=== PATIENT | female | born 1955 | race Caucasian/White ===

== ENCOUNTER 2021-07-28 10:49 | Inpatient (IN) ==
[2021-07-28] MEDS ORDERED: SODIUM CHLORIDE 0.9% 500 ML IV STA (10:57)
[2021-07-28] MEDS ORDERED: ONDANSETRON INJ 2 MG/ML 2 ML VIAL IV STA (10:57)
--- NOTE | 2021-07-28 11:04 | Emergency Department Note ---
Impression & Plan Subcapital fracture of left hip, Fall ED Provider Note NAME: CHAPARRITA KAY AGE: 66 SEX: F : 1955 ARRIVES VIA: Ambulance INFORMANT: Patient, ED PROVIDER(S): Mayo Finney DO CHIEF COMPLAINT: Hip pain HPI: The patient is a 66-year-old female who presented to emergency department for evaluation of hip pain. The patient fell getting out of her vehicle. She landed on her left side. She had severe pain in her left hip initially. She was able to ambulate initially but then was unable to get out of a chair. She has very severe pain in her left hip and her left knee. She also struck her left hand and her left elbow. She did not strike her head. She denies having any neck pain. She did not lose consciousness. The patient denies having any recent injuries to her left hip. The patient is requesting [facility] if she does get admitted and required surgery. The patient arrived via BLS. She recently was infected with COVID-19. She received monoclonal antibody therapy. At this time she states that she has no symptoms. She denies having any fever or cough. She has no chest pain or difficulty breathing. Patient states her pain is moderate to severe and worsened with any movement of her left hip. ROS: See above HPI for pertinent positives & negatives. A total of 10 systems reviewed and were otherwise negative. PAST MEDICAL HISTORY: See Below PAST SURGICAL HISTORY: See Below FAMILY HISTORY: See Below SOCIAL HISTORY: See Below HOME MEDICATIONS: See Below ALLERGIES: See Below VITALS: See Below PHYSICAL EXAMINATION: GENERAL: The patient is awake and alert. The patient is anxious appearing and appears to be in significant pain. EYES: The conjunctivae are clear. The pupils are round and reactive. EARS, NOSE, MOUTH AND THROAT: The nose is without any evidence of any deformity. Mucous membranes are moist. Tongue is midline. NECK: The neck is nontender and supple. RESPIRATORY: Normal respiratory effort is noted there is no evidence of wheezing rhonchi or rales CARDIOVASCULAR: Regular rate and rhythm noted there no murmurs rubs or gallops normal S1 normal S2. GASTROINTESTINAL: The abdomen is soft. Abdomen is nontender. BACK: No midline tenderness or or step-off noted range of motion in flexion extension as well as rotation no signs of muscle spasm noted MUSCULOSKELETAL/EXTREMITIES: There is pain with range of motion testing of the left hip. The hip is held in flexion at the hip as well as the knee. The patient does have palpable tenderness over the left knee but no deformity is appreciated. Pulses are symmetric in both feet. There is also an abrasion to the palm on the left hand as well as left elbow. Range of motion of these karla ints does not produce pain. SKIN: There is no obvious evidence of any rash. There are no petechiae, pallor or cyanosis noted. NEUROLOGIC: Patient is awake alert and oriented x3. MEDICAL DECISION MAKING: The patient is a 66-year-old female who presented to the emergency department for an evaluation of hip pain. The patient had a fall while getting out of a car. The patient landed on her left side. Initially she was able to ambulate but then became worse with hip pain. She called 911 and presented by ambulance. I discussed the patient's laboratory and radiographic studies with her. She did have a subcapital hip fracture. She was treated with pain medication in the emergency department and was significantly improved on reevaluation. I discu ssed her case with the on-call [facility] hospitalist group but also the on-call orthopedic for [facility]. This was by the patient's choice. They evaluated the patient in the emergency department. Triage Nursing notes reviewed. Prior medical records reviewed Vital Signs: reviewed and remarkable for no significant abnormalities Differential diagnosis: Fracture, subluxation, dislocation, contusion, ligamentous injury, neurovascular, compartment syndrome, rhabdomyolysis, as well as other p athologies. ER treatment provided: See below Diagnostics interpreted by me: ECG: EKG was obtained in the emergency department. My interpretation is normal sinus rhythm at 93 bpm. Low voltage was noted throughout. Nonspecific ST segment abnormalities were noted. No previous tracing was available for comparison. Cardiac Monitoring: An order was placed for continuous cardiac monitoring. The monitor shows a rate of 94 bpm with sinus rhythm. Laboratory studies: As stated above and show below. Imaging studies: See below Consultation(s): 1250: I discussed this case with Dr. Key who is on-call for [facility]. I consulted them at the patient's request. He will evaluate the patient in the emergency department. 1300: I discussed this case with Babs who is on-call for the [facility] ospitalist group. They will evaluate the patient in the emergency department. Past Med/Surg History Medical History Anxiety Breast cancer Dyslipidemia HTN (hypertension) Nonsustained ventricular tachycardia Obesity Palpitations SVT (supraventricular tachycardia) Surgical History H/O breast surgery H/O gastric bypass H/O hysterectomy with oophorectomy History of cardiac radiofrequency ablation (RFA) Hx of cholecystectomy Family History Other Lung cancer Stroke Social History (Updated 07/28/21 @ 15:13 by Kia Vasques PA-C) Smoking Status: Never smoker Second Hand Exposure: Yes ( smokes in/outside of house); Do You Dip or Chew Tobacco: No; Tobacco Cessation Education Requested by Patient: No Hx Alcohol Use: Yes (1 beer) Alcohol type: wine Alcohol Intake Frequency: 4 or More x per/Week Hx Substance Use: No Preferred Language: Beninese Communication Ability: Effective Visual Impairment: No Limitations Hand Stamper Required: No Beliefs That Will Affect Care: None marital status: Current Living Situation: Spouse current occupational status: employed Other Information That Helps Us Care for You: No Feels Safe at Home: Yes Safety Concerns: Feels Safe At This Time Assistive Devices: None Allergies Allergies Allergy/AdvReac Type Severity Reaction Status Date / Time Penicillins Allergy Unknown Rash Verified 07/28/21 13:04 Home Meds Home Medications Medication Instructions Recorded Confirmed alprazolam 0.5 mg tablet 0.5 mg PO TID PRN tab 09/03/19 07/28/21 Yam Root 1 cap PO QAM 07/28/21 07/28/21 acetaminophen 500 mg tablet 1,000 mg PO Q6H PRN 07/28/21 07/28/21 (Tylenol Extra Strength) evening primrose oil-linoleic 1 cap PO TID 07/28/21 07/28/21 acid-gamolenic acid 1,000 mg capsule ([place] Oil) losartan 50 mg-hydrochlorothiazide 1 tab PO DAILY 07/28/21 07/28/21 12.5 mg tablet meloxicam 15 mg tablet 15 mg PO DAILY PRN 07/28/21 07/28/21 rosuvastatin 20 mg tablet 20 mg PO DAILY 07/28/21 07/28/21 Results & Data (ED) Vital Signs Vital Signs - 24 hr 07/28/21 10:42 07/28/21 10:57 Temperature 36.7 C Temperature Source Oral Pulse Rate 85 82 Pulse Rhythm Regular Regular Pulse Strength Normal Respiratory Rate 16 16 Respiratory Effort / Characteristics Non-Labored Respiratory Depth Normal Respiratory Pattern Regular Blood Pressure 148/94 H Blood Pressure Mean 112 Pulse Oximetry 96 Oxygen Delivery Method Room Air Room Air Sepsis Recent Fever Within 48 Hours No Sepsis New/Unexplained Change in Mental Status No Sepsis Action Taken by Nursing No Action Required Home Medications Current Medication List: was personally reviewed by me Laboratory Data Attestation: I reviewed the patient's lab results. Result diagrams: 07/28/21 11:21 07/28/21 11:21 Lab Results 07/28/21 07/28/21 07/28/21 Range/Units 11:21 11:21 11:21 WBC 17.08 H (4.8-10.8) K/uL RBC 4.83 (4.2-5.4) M/uL Hgb 14.4 (12.0-16.0) g/dL Hct 43.7 (37-47) % MCV 90.5 (80-100) fL MCH 29.8 (25-34) pg MCHC 33.0 (32-36) g/dL RDW Std Deviation 44.3 (36.4-46.3) fL RDW Coeff of Rigoberto 13.4 (11.5-14.5) % Plt Count 355 (130-400) K/uL MPV 10.8 H (7.4-10.4) fL Immature Gran % (Auto) 0.4 % Neut % (Auto) 87.7 % Lymph % (Auto) 6.7 % Hutchinson % (Auto) 5.1 % Eos % (Auto) 0.0 % Baso % (Auto) 0.1 % Neut # (Auto) 14.99 H (1.4-6.5) K/uL Lymph # (Auto) 1.14 L (1.2-3.4) K/uL Hutchinson # (Auto) 0.87 H (0.11-0.59) K/uL Eos # (Auto) 0.00 (0-0.5) K/uL Baso # (Auto) 0.02 (0-0.2) K/uL Immature Gran # (Auto) 0.06 H (0.00-0.02) K/uL PT Cancelled INR Cancelled APTT Cancelled PTT Ratio Cancelled Sodium 138 (136-145) mmol/L Potassium 4.0 (3.5-5.1) mmol/L Chloride 104 (98-107) mmol/L Carbon Dioxide 26 (21-32) mmol/L Anion Gap 8.0 (3-11) BUN 13 (7-18) mg/dl Creatinine 0.77 (0.6-1.2) mg/dl Est Cr Clr Drug Dosing Not Reportable Est GFR ( Amer) 93.9 ml/min Est GFR (Non-Af Amer) 81.0 ml/min BUN/Creatinine Ratio 16.7 (10-20) Glucose 130 H (70-99) mg/dl Calcium 10.0 (8.5-10.1) mg/dl Total Bilirubin 0.5 (0.2-1) mg/dl AST 26 (15-37) U/L ALT 43 (12-78) U/L Alkaline Phosphatase 85 (45-117) U/L Troponin I < 0.015 (0-0.045) ng/ml Total Protein 7.7 (6.4-8.2) gm/dl Albumin 4.0 (3.4-5.0) gm/dl Globulin 3.7 (2.5-4.0) gm/dl Albumin/Globulin Ratio 1.1 (0.9-2) Lipase 108 (73-393) U/L COVID-19 Eval Order SARS-CoV-2 (PCR) (Negative) Blood Type Antibody Screen 07/28/21 07/28/21 07/28/21 Range/Units 11:24 11:24 13:01 WBC (4.8-10.8) K/uL RBC (4.2-5.4) M/uL Hgb (12.0-16.0) g/dL Hct (37-47) % MCV (80-100) fL MCH (25-34) pg MCHC (32-36) g/dL RDW Std Deviation (36.4-46.3) fL RDW Coeff of Rigoberto (11.5-14.5) % Plt Count (130-400) K/uL MPV (7.4-10.4) fL Immature Gran % (Auto) % Neut % (Auto) % Lymph % (Auto) % Hutchinson % (Auto) % Eos % (Auto) % Baso % (Auto) % Neut # (Auto) (1.4-6.5) K/uL Lymph # (Auto) (1.2-3.4) K/uL Hutchinson # (Auto) (0.11-0.59) K/uL Eos # (Auto) (0-0.5) K/uL Baso # (Auto) (0-0.2) K/uL Immature Gran # (Auto) (0.00-0.02) K/uL PT 10.3 INR 1.0 APTT 24.3 PTT Ratio 0.9 Sodium (136-145) mmol/L Potassium (3.5-5.1) mmol/L Chloride (98-107) mmol/L Carbon Dioxide (21-32) mmol/L Anion Gap (3-11) BUN (7-18) mg/dl Creatinine (0.6-1.2) mg/dl Est Cr Clr Drug Dosing Est GFR ( Amer) ml/min Est GFR (Non-Af Amer) ml/min BUN/Creatinine Ratio (10-20) Glucose (70-99) mg/dl Calcium (8.5-10.1) mg/dl Total Bilirubin (0.2-1) mg/dl AST (15-37) U/L ALT (12-78) U/L Alkaline Phosphatase (45-117) U/L Troponin I (0-0.045) ng/ml Total Protein (6.4-8.2) gm/dl Albumin (3.4-5.0) gm/dl Globulin (2.5-4.0) gm/dl Albumin/Globulin Ratio (0.9-2) Lipase (73-393) U/L COVID-19 Eval Order Covid19 at [facility] SARS-CoV-2 (PCR) POSITIVE A* (Negative) Blood Type Antibody Screen 07/28/21 Range/Units 13:09 WBC (4.8-10.8) K/uL RBC (4.2-5.4) M/uL Hgb (12.0-16.0) g/dL Hct (37-47) % MCV (80-100) fL MCH (25-34) pg MCHC (32-36) g/dL RDW Std Deviation (36.4-46.3) fL RDW Coeff of Rigoberto (11.5-14.5) % Plt Count (130-400) K/uL MPV (7.4-10.4) fL Immature Gran % (Auto) % Neut % (Auto) % Lymph % (Auto) % Hutchinson % (Auto) % Eos % (Auto) % Baso % (Auto) % Neut # (Auto) (1.4-6.5) K/uL Lymph # (Auto) (1.2-3.4) K/uL Hutchinson # (Auto) (0.11-0.59) K/uL Eos # (Auto) (0-0.5) K/uL Baso # (Auto) (0-0.2) K/uL Immature Gran # (Auto) (0.00-0.02) K/uL PT INR APTT PTT Ratio Sodium (136-145) mmol/L Potassium (3.5-5.1) mmol/L Chloride (98-107) mmol/L Carbon Dioxide (21-32) mmol/L Anion Gap (3-11) BUN (7-18) mg/dl Creatinine (0.6-1.2) mg/dl Est Cr Clr Drug Dosing Est GFR ( Amer) ml/min Est GFR (Non-Af Amer) ml/min BUN/Creatinine Ratio (10-20) Glucose (70-99) mg/dl Calcium (8.5-10.1) mg/dl Total Bilirubin (0.2-1) mg/dl AST (15-37) U/L ALT (12-78) U/L Alkaline Phosphatase (45-117) U/L Troponin I (0-0.045) ng/ml Total Protein (6.4-8.2) gm/dl Albumin (3.4-5.0) gm/dl Globulin (2.5-4.0) gm/dl Albumin/Globulin Ratio (0.9-2) Lipase (73-393) U/L COVID-19 Eval Order SARS-CoV-2 (PCR) (Negative) Blood Type A Positive Antibody Screen NEGATIVE Administered Medications Lactated Ringer's (Lr) 1,000 mls @ 80 mls/hr IV .[id number] Stop: 07/29/21 16:33 Last Admin: 07/28/21 15:50 Dose: 80 mls/hr Documented by: [id number] Morphine Sulfate (Morphine Sulfate 4 Mg/Ml 1 Ml Carp\Vial) 4 mg IV Q3H PRN PRN Reason: Pain (6,7,8,9,10) Stop: 08/11/21 15:33 Last Admin: 07/28/21 15:43 Dose: 4 mg Documented by: [id number] Discontinued Medications Sodium Chloride (Nss) 500 mls @ 999 mls/hr IV .Q31M STA Stop: 07/28/21 11:27 Last Infusion: 07/28/21 12:20 Dose: 0 mls/hr Documented by: [id number] Admin: 07/28/21 11:19 Dose: 999 mls/hr Documented by: [id number] Morphine Sulfate (Morphine Sulfate 4 Mg/Ml 1 Ml Carp\Vial) 4 mg IV Q15M PRN PRN Reason: Pain Stop: 08/11/21 10:56 Last Admin: 07/28/21 12:04 Dose: 4 mg Documented by: [id number] Admin: 07/28/21 11:18 Dose: 4 mg Documented by: [id number] Ondansetron HCl (Ondansetron Inj 2 Mg/Ml 2 Ml Vial) 4 mg IV NOW STA Stop: 07/28/21 10:58 Last Admin: 07/28/21 11:18 Dose: 4 mg Documented by: [id number] Imaging Data Radiologist's Impression: Chest X-Ray 07/28/21 10:57 XR chest 1V not portable INDICATION: MN ^fall . TECHNIQUE: Single frontal radiograph of the chest was obtained. Comparison: None available at the time of this dictation. FINDINGS: No lines and tubes are seen. The cardiomediastinal silhouette is normal. Lungs are underinflated but clear. No evidence of pleural effusion or pneumothorax. IMPRESSION: No acute chest disease. ACT 112: Negative or not required by law. Electronically signed by: Femi Pang M.D. 07/28/2021 12:48 PM Elbow X-Ray 07/28/21 10:57 XR elbow LT min 3V routine HISTORY: 66 years-old Female fall acute left elbow pain status post fall COMPARISON: None TECHNIQUE: 3 views of the left elbow FINDINGS: Demineralized appearance the bones. Mild osteoarthritis. No acute fracture or dislocation. Mild dorsal soft tissue swelling. No large joint effusion. IMPRESSION: No acute fracture. ACT 112: Negative or not required by law. The above report was generated using voice recognition software. It may contain grammatical, syntax or spelling errors. Electronically signed by: Placido Juarez M.D. 07/28/2021 12:47 PM Hand X-Ray 07/28/21 10:57 LEFT HAND 3 VIEWS CLINICAL HISTORY: Fall with left hand injury. FINDINGS: 3 views of the left hand are obtained. No prior studies are available for comparison at the time of dictation. The skeletal structures are osteopenic. No fracture is identified. There is mild degenerative narrowing at the radiocarpal articulation. Mild osteoarthritic change is noted at the first carpometacarpal and metacarpophalangeal joints. Mild osteoarthritic change is also seen involving the interphalangeal joints, greatest in the third finger. No erosive disease is identified. The overlying soft tissues are within normal limits. IMPRESSION: 1. No acute bony abnormality is identified. 2. Osteopenia and mild arthritic change as above. Electronically signed by: Neeraj Vinson M.D. 07/28/2021 1:15 PM Hip/Pelvis X-Ray 07/28/21 10:57 XR hip LT 2V w pelvis HISTORY: 66 years-old Female fall acute pelvic pain status post fall COMPARISON: None TECHNIQUE: AP view of the pelvis with crosstable lateral view of the left hip FINDINGS: Mild osteoarthritis of the hips. There is an acute transcervical fracture of the left femoral neck which demonstrates apex cephalad angulation with lateral displacement of 2 cm and impaction of approximately 2 cm. No dislocation. IMPRESSION: Acute impacted and displaced transcervical fracture of the left femur. ACT 112: Negative or not required by law. The above report was generated using voice recognition software. It may contain grammatical, syntax or spelling errors. Electronically signed by: Placido Juarez M.D. 07/28/2021 12:49 PM Knee X-Ray 07/28/21 10:57 LEFT KNEE 2 VIEWS HISTORY: Left knee pain. fall COMPARISON: None. FINDINGS: There is no fracture or dislocation. Trace knee effusion. Mild an terior soft tissue swelling. Mild tricompartmental osteoarthritis. The bones are slightly osteopenic. No radiopaque foreign bodies. IMPRESSION: 1. Trace left knee effusion. 2. No fractures. ACT 112: Negative or not required by law. Electronically signed by: Krzysztof Nguyen M.D. 07/28/2021 12:46 PM Discharge Plan Visit Data Chief Complaint: Hip Pain Stated Complaint: FALL ED Provider: Mayo Finney Discharge Problem: Subcapital fracture of left hip, Fall Patient Disposition: Admitted As Inpatient Discharge Instructions Interventions: ED Discharge Assessment Last Done: 07/28/21 15:23
[2021-07-28] MEDS: MoRPHine SULFATE 4 MG/ML 1 ML CARP\\VIAL IV PRN ×4 (11:18→22:37)
[2021-07-28 11:33] LABS: Basophils # (auto) 0.02 K/uL (0-0.2); Basophils % (auto) 0.1 %; Hematocrit (blood only) 43.7 % (37-47); Hemoglobin 14.4 g/dL (12.0-16.0); Immature Granulocytes # (auto) 0.06 K/uL (0.00-0.02); Immature Granulocytes % (auto) 0.4 %; Lymphocytes # (auto) 1.14 K/uL (1.2-3.4); Lymphocytes % (auto) 6.7 %; Mean Corpuscular Hemoglobin 29.8 pg (25-34); Mean Corpuscular Volume 90.5 fL (80-100); Mean Platelet Volume 10.8 fL (7.4-10.4); Monocytes # (auto) 0.87 K/uL (0.11-0.59); Monocytes % (auto) 5.1 %; Neutrophils # (auto) 14.99 K/uL (1.4-6.5); Neutrophils % (auto) 87.7 %; Platelet Count 355 K/uL (130-400); RDW Coefficient of Variation 13.4 % (11.5-14.5); RDW Standard Deviation 44.3 fL (36.4-46.3); Red Blood Count 4.83 M/uL (4.2-5.4); White Blood Count 17.08 K/uL (4.8-10.8)
[2021-07-28 11:55] LABS: Alanine Aminotransferase 43 U/L (12-78); Aspartate Aminotransferase 26 U/L (15-37); BUN Creatinine Ratio 16.7 (10-20); Blood Urea Nitrogen 13 mg/dl (7-18); Carbon Dioxide 26 mmol/L (21-32); Chloride 104 mmol/L (98-107); Est GFR (African American) 93.9 ml/min; Glucose 130 mg/dl (70-99); Lipase 108 U/L (73-393); Sodium 138 mmol/L (136-145)
[2021-07-28 11:59] LABS: Albumin Globulin Ratio 1.1 (0.9-2); Alkaline Phosphatase 85 U/L (45-117); Bilirubin,Total 0.5 mg/dl (0.2-1); Globulin 3.7 gm/dl (2.5-4.0); Total Protein 7.7 gm/dl (6.4-8.2); Troponin I < 0.015 ng/ml (0-0.045)
--- NOTE | 2021-07-28 12:48 | XRay Report ---
XR elbow LT min 3V routine HISTORY: 66 years-old Female fall acute left elbow pain status post fall COMPARISON: None TECHNIQUE: 3 views of the left elbow FINDINGS: Demineralized appearance the bones. Mild osteoarthritis. No acute fracture or dislocation. Mild dorsa l soft tissue swelling. No large joint effusion. IMPRESSION: No acute fracture. ACT 112: Negative or not required by law. The above report was generated using voice recognition software. It may contain grammatical, syntax o r spelling errors. Electronically signed by: Placido Juarez M.D. 07/28/2021 12:47 PM
--- NOTE | 2021-07-28 12:48 | XRay Report ---
LEFT KNEE 2 VIEWS HISTORY: Left knee pain. fall COMPARISON: None. FINDINGS: There is no fracture or dislocation. Trace knee effusion. Mild anterior soft tissue swellin g. Mild tricompartmental osteoarthritis. The bones are slightly osteopenic. No radiopaque foreign bod ies. IMPRESSION: 1. Trace left knee effusion. 2. No fractures. ACT 112: Negative or not required by law. Electronically signed by: Krzysztof Nguyen M.D. 07/28/2021 12:46 PM
--- NOTE | 2021-07-28 12:49 | XRay Report ---
XR chest 1V not portable INDICATION: MN ^fall . TECHNIQUE: Single frontal radiograph of the chest was obtained. Comparison: None available at the time of this dictation. FINDINGS: No lines and tubes are seen. The cardiomediastinal silhouette is normal. Lungs are underinflated but clear. No evidence of pleural effusion or pneumothorax. IMPRESSION: No acute chest disease. ACT 112: Negative or not required by law. Electronically signed by: Femi Pang M.D. 07/28/2021 12:48 PM
--- NOTE | 2021-07-28 12:50 | XRay Report ---
XR hip LT 2V w pelvis HISTORY: 66 years-old Female fall acute pelvic pain status post fall COMPARISON: None TECHNIQUE: AP view of the pelvis with crosstable lateral view of the left hip FINDINGS: Mild osteoarthritis of the hips. There is an acute transcervical fracture of the left femoral neck wh ich demonstrates apex cephalad angulation with lateral displacement of 2 cm and impaction of approxim ately 2 cm. No dislocation. IMPRESSION: Acute impacted and displaced transcervical fracture of the left femur. ACT 112: Negative or not required by law. The above report was generated using voice recognition software. It may contain grammatical, syntax o r spelling errors. Electronically signed by: Placido Juarez M.D. 07/28/2021 12:49 PM
--- NOTE | 2021-07-28 13:17 | XRay Report ---
LEFT HAND 3 VIEWS CLINICAL HISTORY: Fall with left hand injury. FINDINGS: 3 views of the left hand are obtained. No prior studies are available for comparison at the time of dictation. The skeletal structures are osteopenic. No fracture is identified. There is mild degenerative narrowing at the radiocarpal articulation. Mild osteoarthritic change is noted at the fi rst carpometacarpal and metacarpophalangeal joints. Mild osteoarthritic change is also seen involving the interphalangeal joints, greatest in the third finger. No erosive disease is identified. The over lying soft tissues are within normal limits. IMPRESSION: 1. No acute bony abnormality is identified. 2. Osteopenia and mild arthritic change as above. Electronically signed by: Neeraj Vinson M.D. 07/28/2021 1:15 PM
[2021-07-28 13:36] LABS: Partial Thromboplastin Ratio 0.9; Partial Thromboplastin Time 24.3 Seconds (21.0-31.0); Prothrombin Time 10.3 Seconds (9.0-12.0)
--- NOTE | 2021-07-28 13:59 | History & Physical Report ---
Date of Service July 28, 2021 Assessment & Plan (1) Fall: (2) Closed left hip fracture: Plan: Pt is 66 y/o F with PMH HTN, dyslipidemia, GERD, gastric bypass surgery, anxiety, paroxysmal SVT s/p ablation, left breast CA s/p mastectomy presented to ER with complaint of slip and fall and left hip pain. Denies hitting head, LOC. HIP/PELVIS XRAY: IMPRESSION: Acute impacted and displaced transcervical fracture of the left femur. Left Elbow XRAY: IMPRESSION: No acute fracture. Left Hand XRAY: IMPRESSION: 1. No acute bony abnormality is identified. 2. Osteopenia and mild arthritic change as above. LEFT KNEE XRAY: IMPRESSION: 1. Trace left knee effusion. 2. No fractures. Low Surgical risk secondary to h/o SVT Bedrest NPO SCDs Pain control Ortho consult, plan to take pt to OR tonight CBC, BMP in am (3) COVID: Plan: History COVID-19 Symptoms cough, diarrhea 07/07/2021. Positive COVID-19 test on 07/08/2021. Received monoclonal antibodies on 07/10/2021 Not currently symptomatic. CXR: no acute findings +COVID-19 vaccination Does not require isolation since greater than 10 days since symptom onset per infection control nurse (4) SVT (supraventricular tachycardia): Plan: S/P Ablation Monitor on tele (5) HTN (hypertension): Plan: Continue losartan Hold HCTZ (6) Dyslipidemia: Plan: Continue rosuvastatin (7) Anxiety: Plan: Hold xanax as needed if able while on pain medication (8) History of gastric bypass: Plan: H/O GERD No current medications DVT Prophylaxis -SCDs Full Code as per discussion with pt Follows with Dr Zaragoza for routine care Pt was seen and care coordinated with Dr Washburn. See addendum History of Present Illness Chief Complaint: Fall Primary Care Provider: Javier Zaragoza MD Pt is 66 y/o F with PMH HTN, dyslipidemia, GERD, gastric bypass surgery, anxiety, paroxysmal SVT s/p ablation, left breast CA s/p mastectomy presented to ER with complaint of fall and left hip pain. Patient states was getting out of car when she lost her balance and fell on ground on left side. Denies hitting head or LOC. Patient reports left hip pain and unable to move left leg much secondary to pain. Denies paresthesias left lower extremity. Denies history of prior left hip or left extremity injury. Also reports abrasion to left elbow and forearm, but reports able to move LUE. Patient reports cough and diarrhea 07/07/2021 and positive COVID-19 test on 07/08/2021. Received monoclonal antibodies on 07/10/2021 and since patient reports has been symptom-free with no further cough or diarrhea. Patient reports did have 2 doses COVID-19 vaccination. Denies fever/chills, diaphoresis, N/V/D/C, KAY, dizziness, syncope, vision changes, neck pain, CP, SOB, orthopnea, palpitations, cough, sore throat, choking, otalgia, rhinorrhea, abdominal pain, paresthesias, weakness, extremity weakness, extremity edema, rashes, urinary symptoms. Allergies Allergy/AdvReac Type Severity Reaction Status Date / Time Penicillins Allergy Unknown Rash Verified 07/28/21 13:04 Home Medications Medication Instructions Recorded Confirmed Type alprazolam 0.5 mg tablet 0.5 mg PO TID PRN tab 09/03/19 07/28/21 History Yam Root 1 cap PO QAM 07/28/21 07/28/21 History acetaminophen 500 mg tablet 1,000 mg PO Q6H PRN 07/28/21 07/28/21 History (Tylenol Extra Strength) evening primrose oil-linoleic 1 cap PO TID 07/28/21 07/28/21 History acid-gamolenic acid 1,000 mg capsule ([place] [employer]) losartan 50 mg-hydrochlorothiazide 1 tab PO DAILY 07/28/21 07/28/21 History 12.5 mg tablet meloxicam 15 mg tablet 15 mg PO DAILY PRN 07/28/21 07/28/21 History rosuvastatin 20 mg tablet 20 mg PO DAILY 07/28/21 07/28/21 History Past Med/Surg History Medical History Anxiety Breast cancer Dyslipidemia HTN (hypertension) Nonsustained ventricular tachycardia Obesity Palpitations SVT (supraventricular tachycardia) Surgical History H/O breast surgery H/O gastric bypass H/O hysterectomy with oophorectomy History of cardiac radiofrequency ablation (RFA) Hx of cholecystectomy Family History Other Lung cancer Stroke Social History (Updated 07/28/21 @ 15:13 by Kia Vasques PA-C) Smoking Status: Never smoker Second Hand Exposure: Yes ( smokes in/outside of house); Do You Dip or Chew Tobacco: No; Tobacco Cessation Education Requested by Patient: No Hx Alcohol Use: Yes (1 beer) Alcohol type: wine Alcohol Intake Frequency: 4 or More x per/Week Hx Substance Use: No Preferred Language: Burmese Communication Ability: Effective Visual Impairment: No Limitations Cephalometric Analyst Required: No Beliefs That Will Affect Care: None marital status: Current Living Situation: Spouse current occupational status: employed Other Information That Helps Us Care for You: No Feels Safe at Home: Yes Safety Concerns: Feels Safe At This Time Assistive Devices: None Review of Systems Review of Systems: All systems reviewed & are unremarkable except as noted in HPI & below Physical Exam Physical Exam: General: no distress, overweight Head: normocephalic, atraumatic Eyes: PERRL, EOM's intact, conjunctiva non-injected, anicteric ENT: normal inspection external ears, nose, mucous membranes moist Neck: supple, trachea midline Lungs: clear, no respiratory distress, no wheezing/rhonchi/rales CV: RRR, no murmur, no pretibial edema Abd: normal BS, soft, non-tender Ext: LLE: pt hold left leg in flexion at knee as position of comfort, unable to extend hip or knee left hip secondary to pain, +tenderness to palpation hip, anterior knee, distal pulses palpable, sensation to light touch intact. no cyanosis, no calf tenderness. LUE: +tenderness left elbow, able to fully flex elbow and wrist, distal pulses palpable Neuro: A&O x 3, no focal deficits noted, normal affect Skin: warm, dry, +abrasion left arm Results & Data Results & Data ([facility]) Vital Signs (Past 12 Hours) Vital Signs Temp Pulse Resp BP Pulse Ox 07/28/21 10:57 82 16 07/28/21 10:42 36.7 C 85 16 148/94 H 96 Laboratory Results Short CBC 07/28/21 Range/Units 11:21 WBC 17.08 H (4.8-10.8) K/uL Hgb 14.4 (12.0-16.0) g/dL Hct 43.7 (37-47) % Plt Count 355 (130-400) K/uL BMP 07/28/21 11:21 Sodium 138 Potassium 4.0 Chloride 104 Carbon Dioxide 26 BUN 13 Creatinine 0.77 Glucose 130 H Calcium 10.0 Cardiac Enzymes 07/28/21 Range/Units 11:21 Troponin I < 0.015 (0-0.045) ng/ml Liver Function 07/28/21 Range/Units 11:21 Total Bilirubin 0.5 (0.2-1) mg/dl AST 26 (15-37) U/L ALT 43 (12-78) U/L Alkaline Phosphatase 85 (45-117) U/L Albumin 4.0 (3.4-5.0) gm/dl Diagnostic Findings Chest X-Ray 07/28/21 10:57 XR chest 1V not portable INDICATION: MN ^fall . TECHNIQUE: Single frontal radiograph of the chest was obtained. Comparison: None available at the time of this dictation. FINDINGS: No lines and tubes are seen. The cardiomediastinal silhouette is normal. Lungs are underinflated but clear. No evidence of pleural effusion or pneumothorax. IMPRESSION: No acute chest disease. ACT 112: Negative or not required by law. Electronically signed by: Femi Pang M.D. 07/28/2021 12:48 PM Elbow X-Ray 07/28/21 10:57 XR elbow LT min 3V routine HISTORY: 66 years-old Female fall acute left elbow pain status post fall COMPARISON: None TECHNIQUE: 3 views of the left elbow FINDINGS: Demineralized appearance the bones. Mild osteoarthritis. No acute fracture or dislocation. Mild dorsal soft tissue swelling. No large joint effusion. IMPRESSION: No acute fracture. ACT 112: Negative or not required by law. The above report was generated using voice recognition software. It may contain grammatical, syntax or spelling errors. Electronically signed by: Placido Juarez M.D. 07/28/2021 12:47 PM Hand X-Ray 07/28/21 10:57 LEFT HAND 3 VIEWS CLINICAL HISTORY: Fall with left hand injury. FINDINGS: 3 views of the left hand are obtained. No prior studies are available for comparison at the time of dictation. The skeletal structures are osteopenic. No fracture is identified. There is mild degenerative narrowing at the radiocarpal articulation. Mild osteoarthritic change is noted at the first carpometacarpal and metacarpophalangeal joints. Mild osteoarthritic change is also seen involving the interphalangeal joints, greatest in the third finger. No erosive disease is identified. The overlying soft tissues are within normal limits. IMPRESSION: 1. No acute bony abnormality is identified. 2. Osteopenia and mild arthritic change as above. Electronically signed by: Neeraj Vinson M.D. 07/28/2021 1:15 PM Hip/Pelvis X-Ray 07/28/21 10:57 XR hip LT 2V w pelvis HISTORY: 66 years-old Female fall acute pelvic pain status post fall COMPARISON: None TECHNIQUE: AP view of the pelvis with crosstable lateral view of the left hip FINDINGS: Mild osteoarthritis of the hips. There is an acute transcervical fracture of the left femoral neck which demonstrates apex cephalad angulation with lateral displacement of 2 cm and impaction of approximately 2 cm. No dislocation. IMPRESSION: Acute impacted and displaced transcervical fracture of the left femur. ACT 112: Negative or not required by law. The above report was generated using voice recognition software. It may contain grammatical, syntax or spelling errors. Electronically signed by: Placido Juarez M.D. 07/28/2021 12:49 PM Knee X-Ray 07/28/21 10:57 LEFT KNEE 2 VIEWS HISTORY: Left knee pain. fall COMPARISON: None. FINDINGS: There is no fracture or dislocation. Trace knee effusion. Mild anterior soft tissue swelling. Mild tricompartmental osteoarthritis. The bones are slightly osteopenic. No radiopaque foreign bodies. IMPRESSION: 1. Trace left knee effusion. 2. No fractures. ACT 112: Negative or not required by law. Electronically signed by: Krzysztof Nguyen M.D. 07/28/2021 12:46 PM ECG Rate (beats per minute): 93 Rhythm: sinus rhythm Additional Comments: T wave flattening Code Status & VTE Plan VTE Prophylaxis Plan VTE Prophylaxis will be ordered: Yes Supervising Physician Co-Signing Physician Notes Attending Addendum: delayed entry date of service as noted above care coordinated with AGNSE Gold please refer to her notes for full details, I agree with her notes patient seen and examined, records reviewed by myself as well on exam, patient seen resting in bed, not in distress reports significant L hip pain with movement no chest pain, dyspnea, palpitations, dizziness no other symptoms VS noted and reviewed oriented x 3, not in distress, speaks in sentences with no effort nor accessory muscle use normal rate, regular rhythm, no murmurs clear breath sounds bilaterally non distended, soft, nontender L LE mildly externally rotated to the left no bipedal edema, erythema, warmth no neuro deficits WBC 17 Hg 14.4 Crea 0.77 L hip xray:Acute impacted and displaced transcervical fracture of the left femur. ASSESSMENT AND PLAN Left Femur Fracture patient at moderate risk for cardiopulmonary complication perioperatively given comorbidities, age group no medical contraindication to proceed with surgery HTN hold HCTZ to prevent hypotension, dehydration Hx of SVT monitor in Tele other diagnoses and plan of care as per EZEKIEL Gold notes Cristino Washburn MD
--- NOTE | 2021-07-28 14:09 | Orthopedic Consultation ---
Date of Consultation July 28, 2021 Assessment & Plan (1) Closed left hip fracture: Patient was evaluated in the ED today. She will require surgical intervention. This was discussed with the patient. Surgery will likely be this evening. She is currently n.p.o. and will remain as such. Patient will be admitted to the medicine service. Preoperative antibiotics have been ordered. Though the patient is positive for COVID-19, she is greater than 2 weeks since her initial test. She does not require isolation at this point. Continue nonweightbearing status until she is taken to the OR. OR arrangements have been made. History of Present Illness Reason for Consultation: Left hip fracture Requesting Physician: Reg Attending Physician: Reg History of Present Illness This 66-year-old female was seen today in the ED, for evaluation of left hip pain. Patient states this morning she was getting out of her vehicle and was in a hurry. She believes she got 1 leg out of the vehicle and then tried to turn around to grab her purse, well going to a coffee shop. She thinks her other leg may have been inside the vehicle, causing her to lose her balance and fall. She landed on her left side. There was immediate onset of left hip pain. She did not strike her head. There was no loss of consciousness. She did sustain abrasions on her left palm, and elbow. There was also onset of left knee pain. Patient states she did ambulate on the hip with difficulty. She made it back home and was able to sit at her desk. She states there was hip pain with sitting, but it was tolerable. She was unable to then ambulate to the bathroom. She came here for further evaluation at the urging of her daughter. No prior history of significant hip discomfort. 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 She denies any numbness or tingling. No chest pain, shortness of breath, abdominal pain, or headache. No nausea or vomiting. Allergies Allergy/AdvReac Type Severity Reaction Status Date / Time Penicillins Allergy Unknown Rash Verified 07/28/21 13:04 Home Medications Medication Instructions Recorded Confirmed Type alprazolam 0.5 mg tablet 0.5 mg PO TID PRN tab 09/03/19 07/28/21 History Yam Root 1 cap PO QAM 07/28/21 07/28/21 History acetaminophen 500 mg tablet 1,000 mg PO Q6H PRN 07/28/21 07/28/21 History (Tylenol Extra Strength) evening primrose oil-linoleic 1 cap PO TID 07/28/21 07/28/21 History acid-gamolenic acid 1,000 mg capsule ([place] [employer]) losartan 50 mg-hydrochlorothiazide 1 tab PO DAILY 07/28/21 07/28/21 History 12.5 mg tablet meloxicam 15 mg tablet 15 mg PO DAILY PRN 07/28/21 07/28/21 History rosuvastatin 20 mg tablet 20 mg PO DAILY 07/28/21 07/28/21 History Patient History Medical History (Updated 07/28/21 @ 14:29 by Clif Liu PA-C) Breast cancer Nonsustained ventricular tachycardia Obesity Palpitations SVT (supraventricular tachycardia) Surgical History (Updated 07/28/21 @ 14:19 by Clif Liu PA-C) H/O breast surgery H/O gastric bypass H/O hysterectomy with oophorectomy History of cardiac radiofrequency ablation (RFA) Hx of cholecystectomy Family History (Updated 07/28/21 @ 14:19 by Clif Liu PA-C) Other Lung cancer Stroke Social History (Updated 07/28/21 @ 14:20 by Clif Liu PA-C) Smoking Status: Never smoker Hx Alcohol Use: Yes Hx Substance Use: No Visual Impairment: No Limitations marital status: Current Living Situation: Spouse current occupational status: employed Feels Safe at Home: Yes Review of Systems Review of Systems: All systems reviewed & are unremarkable except as noted in HPI & below A total of 10 systems were reviewed Physical Exam Physical Exam: General: Well-developed, well-nourished, middle-aged white female, in no acute distress. Obvious discomfort. Laying on the bed. Alert and oriented. Skin: Warm and dry with good turgor. No rashes or lesions. No ecchymosis or erythema. The patient is not diaphoretic. Minor abrasions present on her left palm and left elbow. HEENT: Normocephalic, atraumatic. Eyes PERRLA, EOMI. Nares and oropharynx exams deferred due to Covid precautions. Heart: RRR no MGR Lungs: Lungs are clear to auscultation. No crackles rhonchi or wheezing. Good air movement. The patient is able to take a deep breath. Abdomen: Abdomen was inspected, auscultated, and palpated. Bowel sounds present x 4. Soft, nontender to palpation. No hepato-splenomegaly. No masses noted. No rebound. Musculoskeletal: Patient has discomfort with palpation over her left palm as well as her left elbow. She has full range of motion of her fingers, wrists, and elbows. Supple motion of her shoulders. Left leg evaluation reveals focal discomfort with palpation over the lateral aspect of her hip. This extends anteriorly to the flexion crease. She has significant discomfort with any attempted rotation or flexion of the left hip. Left leg is flexed. She has significant discomfort with attempts at straightening it. Due to this, leg length inequality cannot be assessed. She has focal discomfort palpation over her medial and lateral aspect of the left knee. Discomfort is both along the joint line is L is along the epicondyles. No significant intra-articular effusion. Intact motor function of the ankle and toes. No pain with palpation of the ankle or foot. Neurologic: Gross sensation is intact across the upper and lower extremities by soft touch. Peripheral pulses are 2+. Results & Data ([facility]) Vital Signs (Past 12 Hours) Vital Signs Temp Pulse Resp BP Pulse Ox 07/28/21 10:57 82 16 07/28/21 10:42 36.7 C 85 16 148/94 H 96 Laboratory Results Preoperative lab work obtained today was reviewed by me. Elevated white count of 17.08. Hemoglobin 14.4, hematocrit 43.7. Platelets are normal at 355,000. INR is normal at 1.0. PT is normal at 10.3. Sodium 138, potassium 4.0. Chloride 104. BUN 13, creatinine 0.77. Glucose 130 nonfasting. Troponin is normal at less than 0.015. LFTs are also normal. Patient does have a positive COVID-19 test. She was initially tested and was positive over 2 weeks ago. She did receive monoclonal antibodies at that time and is currently asymptomatic. Diagnostic Findings Chest x-ray obtained today was read by radiology as negative for acute disease. Left Elbow films obtained today were read by radiology as negative for fracture or dislocation. Mild osteoarthritis. Left hand films obtained today were read by radiology as negative for acute bony abnormality. Mild arthritic changes are present. Left knee x-rays obtained today were read by radiology. No evidence for fracture. Mild tricompartmental osteoarthritis. Trace knee effusion. No foreign bodies. Left hip films obtained today were read by radiology as positive for acute impacted and displaced transcervical fracture of the femur. Lateral displacement 2 cm and impaction of approximately 2 cm.
[2021-07-28] MEDS ORDERED: ALPRAZolam 0.5 MG TABLET PO PRN (15:34)
[2021-07-28] MEDS ORDERED: MoRPHine SULFATE 2 MG/ML CARP IV PRN (15:34)
[2021-07-28] MEDS ORDERED: MAGNESIUM HYDROXIDE SUSP 30 ML UDC PO PRN (15:34)
[2021-07-28] MEDS ORDERED: POLYETHYLENE (MIRALAX) 17 GM PACK PO PRN (15:34)
[2021-07-28] MEDS ORDERED: ONDANSETRON INJ 2 MG/ML 2 ML VIAL IV PRN ×2 (15:34→17:35)
[2021-07-28] MEDS ORDERED: oxyCODONE HCL IR 5 MG TAB (IMMEDIATE RELEASE) PO PRN ×2 (15:34)
[2021-07-28] MEDS ORDERED: bisacodyL 10 MG SUPP PR PRN (15:34)
[2021-07-28] MEDS ORDERED: ACETAMINOPHEN 325 MG TAB PO PRN (15:34)
[2021-07-28] MEDS ORDERED: NALOXONE HCL 0.4 MG/1 ML VIAL/CARP IV PRN ×2 (15:34→21:02)
[2021-07-28] MEDS ORDERED: ceFAZolin 2000MG 2,000 MG/15 ML SYR IV SCH (15:45)
--- NOTE | 2021-07-28 15:49 | Anesthesiology Consultation ---
Date of Service July 28, 2021 Assessment & Plan (1) Encounter for pre-operative examination: Chart Review Chart Review: Acceptable Risk for Surgery History Surgery Operation Date: 07/28/21 15:45 Proposed Procedures p Left Bipolar Hemiarthroplasty - Luiz Key MD Height/Weight Weight: 87.5 kg Allergies Allergy/AdvReac Type Severity Reaction Status Date / Time Penicillins Allergy Unknown Rash Verified 07/28/21 13:04 Medications Home Medications Medication Instructions Recorded Confirmed Last Taken alprazolam 0.5 mg tablet 0.5 mg PO TID PRN tab 09/03/19 07/28/21 07/27/21 1 mg Yam Root 1 cap PO QAM 07/28/21 07/28/21 07/28/21 acetaminophen 500 mg tablet 1,000 mg PO Q6H PRN 07/28/21 07/28/21 07/28/21 (Tylenol Extra Strength) 1000 mg evening primrose oil-linoleic 1 cap PO TID 07/28/21 07/28/21 07/28/21 acid-gamolenic acid 1,000 mg capsule ([place] [employer]) losartan 50 mg-hydrochlorothiazide 1 tab PO DAILY 07/28/21 07/28/21 07/28/21 12.5 mg tablet meloxicam 15 mg tablet 15 mg PO DAILY PRN 07/28/21 07/28/21 Unknown rosuvastatin 20 mg tablet 20 mg PO DAILY 07/28/21 07/28/21 07/28/21 Active Medications Generic Name Dose Route Start Last Admin Trade Name Freq PRN Reason Stop Dose Admin Lactated Ringer's 1,000 mls @ 80 mls/hr 07/28/21 15:34 07/28/21 15:50 Lr IV 07/29/21 16:33 80 mls/hr .[id number] Administration Morphine Sulfate 4 mg 07/28/21 15:34 07/28/21 15:43 Morphine Sulfate 4 Mg/Ml 1 Ml Carp\Vial IV 08/11/21 15:33 4 mg Q3H PRN Administration Pain (6,7,8,9,10) Past Medical History Medical History Anxiety Breast cancer Dyslipidemia HTN (hypertension) Nonsustained ventricular tachycardia Obesity Palpitations SVT (supraventricular tachycardia) Past Family History Family History Other Lung cancer Stroke Past Surgical History Surgical History H/O breast surgery H/O gastric bypass H/O hysterectomy with oophorectomy History of cardiac radiofrequency ablation (RFA) Hx of cholecystectomy Social History Smoking Status: Never smoker Hx Alcohol Use: Yes (1 beer) Hx Substance Use: No Physical Exam Vital Signs Last Vital Signs Temp 36.9 C 07/28/21 15:23 Pulse 88 07/28/21 15:23 Resp 20 07/28/21 15:23 BP 142/64 H 07/28/21 15:23 Pulse Ox 99 07/28/21 15:23 Testing Laboratory Results 07/28/21 11:21 07/28/21 11:21 PT 10.3 Seconds (9.0-12.0) 07/28/21 13:01 INR 1.0 (0.9-1.1) 07/28/21 13:01 APTT 24.3 Seconds (21.0-31.0) 07/28/21 13:01 Electrocardiogram Date: 07/28/21 Findings: + NSR @ (93) and + NSST changes Other Testing recent Holter showed some up to 4 beat runs of PVC's and of SVT over the course of the study
[2021-07-28] MEDS: LACTATED RINGER'S 1,000 ML IV SCH (15:50)
[2021-07-28] MEDS ORDERED: INFLUENZA VACCINE HIGH DOSE PF 65+ 0.7 ML SYR IM ONE (16:10)
[2021-07-28] MEDS ORDERED: BUPIVACAINE 0.5 % 5 MG/1 ML PF 10ML VIAL ONE (16:16)
[2021-07-28] MEDS ORDERED: ATROPINE SULFATE 0.1 MG/ML 10ML SYR IV PRN (17:35)
[2021-07-28] MEDS ORDERED: fentaNYL citrate 100 MCG/2 ML VIAL IV PRN (17:35)
[2021-07-28] MEDS ORDERED: ePHEDrine sulfate 50 MG/ML AMP IV PRN (17:35)
[2021-07-28] MEDS ORDERED: PROPOFOL IV EMULSION 10 MG/ML 20 ML VIAL IV ONE ×3 (17:50→17:51)
[2021-07-28] MEDS ORDERED: fentaNYL citrate 100 MCG/2 ML VIAL ONE (17:56)
[2021-07-28] MEDS ORDERED: MIDAZOLAM HCL 1 MG/ML 2ML VIAL ONE ×3 (17:56→20:13)
[2021-07-28] MEDS ORDERED: LIDOCAINE 1% LOCAL 20 ML VIAL ONE (18:19)
[2021-07-28] MEDS ORDERED: BUPIVACAINE 0.5 % 5 MG/1 ML MPF 30ML VIAL ONE (18:19)
[2021-07-28] MEDS ORDERED: GENTAMICIN SULFATE 40 MG/ML 2 ML VIAL ONE (18:19)
[2021-07-28] MEDS ORDERED: TRANEXAMIC ACID 1,000 MG **IV Pre-op IV STA (18:53)
[2021-07-28] MEDS ORDERED: TRANEXAMIC ACID 100 MG/ML 10 ML VIAL IV ONE (18:53)
--- NOTE | 2021-07-28 20:59 | Operative Report ---
Post Operative Report Pre & Post Diagnosis Operation Date: 07/28/21 15:45 Pre-Op Diagnosis: Left femoral neck fracture Post-Op Diagnosis: Left femoral neck fracture I identified the patient and participated in the time-out.: Yes Procedure Operation Date: 07/28/21 15:45 Actual Procedures p Left Uncemented Bipolar Hemiarthroplasty(Left) - Luiz Key MD Surgeon Luiz Key MD Human Factors Specialist Clif Liu no resident or fellow available Estimated Blood Loss 50 Findings Consistent with Post-Op Diagnosis Specimens Femoral head Drains None Anesthesia Type Spinal MAC Complications none Disposition Accompanied Patient To Recovery: No Disposition: Recovery Room Indications The patient is 66 years old. She is status post fall earlier today which resulted in a displaced left femoral neck fracture. I recommended treatment with a bipolar hemiarthroplasty and she agreed to proceed. Description of Procedure Informed consent obtained. Patient identified. She identified the operative site as the left hip. I marked with my initials and a preoperative surgical timeout was performed. A preop dose of IV antibiotics was given. She was taken to the operating room positioned supine on the OR table. Previously anesthetic was administered. She was then turned decubitus with the left side up. The Stolberg positioner was utilized to secure her pelvis perpendicular to the floor. Axillary roll inserted. Bony prominences of the upper and lower extremities were inspected and padded. The leg was prepped and draped in the usual sterile fashion. DVT prophylaxis with foot pumps intraoperatively and postoperatively mechanical devices Lovenox and early mobility. A posterior approach to the hip was made with a posterior lateral incision one third below the trochanter two thirds above. Electrocautery down to subcutaneous tissues controlling bleeding as encountered. The IT band and gluteal fascia were divided in line with the incision and the Charnley retractor was inserted. The trochanteric bursa was debrided. The sciatic nerve was readily identified sitting just behind the trochanter and was large in size. Care was taken at all times to avoid pressure or impingement upon the nerve. She had a fairly large prominence of the proximal posterior ischium. I then inserted a double been retractor underneath the gluteus medius. The short external rotators were identified and released from the greater trochanter and tagged for later repair. The gluteus minimus was elevated off of the joint capsule and a capsulotomy was performed elevating the capsule and preserving it with a tag suture for later repair. The labrum was intact. The femoral head was removed with a clamp and sized to a 44. This was confirmed with trialing both 44 and 45. Ligamentum teres was resected. The inferior capsule was released. The leg was placed in the 9090 position. Soft tissue around the base of the femoral neck was removed. The lesser trochanter was identified. Retractors were inserted. A cut was made just less than 1 fingerbreadth above the lesser trochanter using the provided template. The femoral neck had been fractured just in the subcapital region. There was some irregularity of the fracture edges which propagated distally just to the level of the femoral neck cut. The box osteotome was utilized followed by the canal finder and the lateralizing reamer. The ninja rasp was utilized as necessary and care was taken to broach laterally. Reaming began at sized to a proceeded up to a size 5. Broaching began at sized to a proceeded up to a size 5. There was countersinking of the 5 with less than ideal stability. I went ahead and then reamed to a 6 and inserted a 6 broach which had good fit fill and stability. The calcar was planed. Trialing was then performed and the +1.5 neck length which was the shortest neck length gave a good stability. Negative shock throughout. Leg lengths are difficult to estimate estimate but appears to be lengthened about 1 cm compared to the preoperative state. The knee could be abducted and hip internally rotated about 45 degrees before there was any instability. Her anatomical neck anteversion was about 30 degrees which was where the broach position was required. The broach was removed and the canal was irrigated. The final implant was inserted at about 30 degrees of anteversion. Trialing again was then performed and the after mentioned stability applied. The final shell liner and head were inserted and stability was reassessed. Irrigation was performed of the acetabulum and soft tissues which were kept moist throughout the procedure. I then went ahead and repaired the capsule and short external rotators back to the trochanter through the bone and to the hip adductor musculature using #1 Ethibond. The skin was then closed in layers with 0 and 2-0 Vicryl and marilin. Prior to that the upper portion of the IT band and gluteal fascia were reapproximated using interrupted #1 Vicryl. Xeroform 4 x 4's ABD foam tape and a hip abduction pillow. Patient waken from anesthesia with difficulty taken to recovery in stable condition resected femoral head sent for specimen. Counts were correct blood loss estimated to be 50 cc. She received a dose of TXA. At the conclusion the operation spoke to her daughter informed her of my findings postop instructions were given the hip could be fully extended and the knee fully flexed. Due to the stability a high offset option was not necessary. Components inserted were the [place] femoral stem 6 standard with a 28 x 44 bipolar shell and a 28 x 1.5 femoral head. The trunnion was cleaned and dried and the head was impacted with a mallet and the tip inserter. Weight-bear as tolerated. Lovenox for DVT prophylaxis. Total hip precautions. I attest to the content of the Intraoperative Record and any orders documented therein. Any exceptions are noted below.
--- NOTE | 2021-07-28 21:21 | Operative Report ---
Post Operative Report Pre & Post Diagnosis Operation Date: 07/28/21 15:45 Pre-Op Diagnosis: Left femoral neck fracture Post-Op Diagnosis: Left femoral neck fracture I identified the patient and participated in the time-out.: Yes Procedure Operation Date: 07/28/21 15:45 Actual Procedures p Left Uncemented Bipolar Hemiarthroplasty(Left) - Luiz Key MD Surgeon ARCELIA Key MD [employer] Car Repair Supervisor Clif Liu no resident or fellow available Estimated Blood Loss 50 Findings Consistent with Post-Op Diagnosis see operative report Specimens see operative report Drains none Complications none Disposition Accompanied Patient To Recovery: Yes Indications This 66-year-old female was seen today in the ED, for evaluation of a left hip fracture. Patient injured herself after she fell from her vehicle. She was brought to the ED and femoral neck fracture was confirmed. Preoperative imaging was obtained. She elected to proceed with surgical invention in hopes of imp roving pain and function. Description of Procedure Patient was administered a spinal anesthetic and then taken to the operating room where she was given sedation. She was prepped and draped in the usual sterile fashion. Please see Dr. Key's operative report for specifics of the procedure. I was present for the entire case from initial patient positioning through final wound closure. Assistance was provided in tissue retraction, hemostasis, trial implant placement, final implant placement, and final wound closure. Patient was taken to the recovery room in satisfactory condition. I attest to the content of the Intraoperative Record and any orders documented therein. Any exceptions are noted below.
--- NOTE | 2021-07-28 21:37 | XRay Report ---
XR hip LT 2V w pelvis INDICATION: MN ^Y ^Post-Operative implant position ^AP shoot through lateral of L hip in ICU-12 TECHNIQUE: 2 views of the left hip and single frontal view of the pelvis were obtained. Comparison: Comparison is made to left hip 3 views 2020 at 0929 hours FINDINGS: Previously noted left femoral neck fracture has been reduced and a total left hip arthroplasty has be en performed. The bones are anatomically aligned. Postsurgical changes are seen including subcutaneou s emphysema. IMPRESSION: Status post reduction of femoral neck fracture and placement of total left hip arthroplasty with expe cted postsurgical appearance. ACT 112: Negative or not required by law. Electronically signed by: Femi Pang M.D. 07/28/2021 9:36 PM
--- NOTE | 2021-07-28 21:53 | Anesthesiology Progress Note ---
Date of Service July 28, 2021 Anesthesia Post Procedure Vital Signs Vital Signs: Temp Pulse Pulse Pulse Resp BP BP 07/28/21 21:45 36.5 C 88 17 112/56 L 07/28/21 21:35 90 17 122/58 L 07/28/21 21:25 90 20 108/73 07/28/21 21:15 92 H 18 108/73 07/28/21 21:09 36.0 C L 91 H 14 117/83 07/28/21 17:21 37.1 C 98 H 20 127/81 07/28/21 15:53 37 C 94 H 20 134/81 07/28/21 15:52 95 H 07/28/21 15:23 36.9 C 88 20 142/64 H 07/28/21 10:57 82 16 07/28/21 10:42 36.7 C 85 16 148/94 H Pulse Ox 07/28/21 21:45 94 07/28/21 21:35 95 07/28/21 21:25 96 07/28/21 21:15 96 07/28/21 21:09 99 07/28/21 17:21 96 07/28/21 15:53 98 07/28/21 15:52 07/28/21 15:23 99 07/28/21 10:57 07/28/21 10:42 96 Transfer of Care Handoff Completed per policy Notes Mental Status: alert / awake / arousable Patient Amnestic to Procedure: Yes Nausea / Vomiting: adequately controlled Pain: adequately controlled Airway Patency, RR, SpO2: stable & adequate BP & HR: stable & adequate Hydration State: stable & adequate Neuraxial Anesthesia: was administered and sensory block is resolving Anesthetic Complications: no major complications apparent
[2021-07-28] MEDS ORDERED: ceFAZolin 2000MG 2,000 MG/15 ML SYR IV ONE (22:45)
[2021-07-29] MEDS: MoRPHine SULFATE 4 MG/ML 1 ML CARP\\VIAL IV PRN ×6 (01:41→22:04)
[2021-07-29] MEDS: LACTATED RINGER'S 1,000 ML IV SCH (03:29)
--- NOTE | 2021-07-29 05:38 | Electrocardiogram Report ---
Test Reason : Blood Pressure : / mmHG Vent. Rate : 093 BPM Atrial Rate : 093 BPM P-R Int : 150 ms QRS Dur : 076 ms QT Int : 376 ms P-R-T Axes : 052 014 063 degrees QTc Int : 467 ms Normal sinus rhythm Low voltage QRS Nonspecific T wave abnormality Abnormal ECG No previous ECGs available Confirmed by Dimitry Hernandez ([id number]) on 07/29/2021 5:37:57 AM Referred By: REFERRED SELF Confirmed By:Dimitry Hernandez
[2021-07-29] MEDS: ceFAZolin 2000MG 2,000 MG/15 ML SYR IV SCH ×2 (06:17→15:00)
[2021-07-29] MEDS: DOCUSATE SODIUM/SENNA 50/8.6MG TAB PO SCH ×2 (07:21→22:04)
[2021-07-29 08:20] LABS: Basophils # (auto) 0.01 K/uL (0-0.2); Basophils % (auto) 0.1 %; Eosinophils # (auto) 0.03 K/uL (0-0.5); Eosinophils % (auto) 0.4 %; Hematocrit (blood only) 32.3 % (37-47); Hemoglobin 10.6 g/dL (12.0-16.0); Immature Granulocytes # (auto) 0.01 K/uL (0.00-0.02); Immature Granulocytes % (auto) 0.1 %; Lymphocytes # (auto) 1.35 K/uL (1.2-3.4); Lymphocytes % (auto) 17.4 %; Mean Corpuscular Hemoglobin 28.8 pg (25-34); Mean Corpuscular Hgb Conc 32.8 g/dL (32-36); Mean Corpuscular Volume 87.8 fL (80-100); Monocytes # (auto) 0.81 K/uL (0.11-0.59); Monocytes % (auto) 10.4 %; Neutrophils # (auto) 5.55 K/uL (1.4-6.5); Neutrophils % (auto) 71.6 %; Platelet Count 276 K/uL (130-400); RDW Coefficient of Variation 13.4 % (11.5-14.5); RDW Standard Deviation 43.5 fL (36.4-46.3); Red Blood Count 3.68 M/uL (4.2-5.4); White Blood Count 7.76 K/uL (4.8-10.8)
[2021-07-29 08:40] LABS: BUN Creatinine Ratio 13.7 (10-20); Calcium 8.4 mg/dl (8.5-10.1); Creatinine Clr Calc Pharmacy 97.2 ml/min; Est GFR (Non-African American) 93.2 ml/min; Potassium 3.7 mmol/L (3.5-5.1); Prealbumin 17.3 mg/dl (20-40)
[2021-07-29] MEDS: ENOXAPARIN INJ 40 MG/0.4 ML SYR SQ SCH (08:45)
[2021-07-29] MEDS: LOSARTAN POTASSIUM 50 MG TAB PO SCH (08:45)
[2021-07-29] MEDS: ROSUVASTATIN CALCIUM 20 MG TAB PO SCH (08:46)
[2021-07-29] MEDS ORDERED: LOSARTAN/HCTZ 50/12.5MG TAB PO SCH ×2 (09:00)
--- NOTE | 2021-07-29 12:58 | Progress Notes ---
DATE OF SERVICE: 07/29/2021 Ines is resting comfortably in bed. She is having some pain. We discussed pain management. The results of the surgery were discussed with her and we reviewed the x-rays. She is afebrile and her vital signs are stable. Her dressing is clean and dry and her thigh is not substantially swollen. She has 5/5 ankle and toe plantar flexion, dorsiflexion, inversion and eversion strength and normal sensation and a 1+ dorsalis pedis pulse. White count 8, hemoglobin 11, hematocrit 32, platelets 276. Her vitamin D is low at 27 and will be r eplaced. Radiographs of her hip done postoperatively show equal leg lengths. Hemiarthroplasty in place unceme nted without evidence of complication, fracture or dislocation. IMPRESSION: Pathological fracture of the left hip, likely secondary to vitamin D deficiency and low bone density. PLAN: She may weightbear as tolerated with walker. Total hip precautions. Lovenox for DVT prophyla xis. Replace vitamin D. depending on how she does, she may be able to go home or may need inpatient rehab. Discontinue Anderson. We talked about hip precautions and I recommended a hip abduction pillow between the knees when lying in bed or seated. She will follow up in the office 2 weeks postoperati guzman. She will need to continue on her Lovenox for at least 2 weeks if not longer. I will be out of town over the weekend. Dr. Fabian is bellperson today and Dr. Florian is on over the [facility] [place]. Job ID: [id number]
[2021-07-29] MEDS ORDERED: ERGOCALCIFEROL 50,000 UNITS 1250 MCG CAP PO SCH ×2 (15:45→16:00)
--- NOTE | 2021-07-29 15:45 | Hospitalist Progress Note ---
Date of Service July 29, 2021 Assessment & Plan (1) Fall: (2) Closed left hip fracture: Plan: per EZEKIEL Kia Roberts notes: Pt is 66 y/o F with PMH HTN, dyslipidemia, GERD, gastric bypass surgery, anxiety, paroxysmal SVT s/p ablation, left breast CA s/p mastectomy presented to ER with complaint of slip and fall and left hip pain. Denies hitting head, LOC. HIP/PELVIS XRAY: IMPRESSION: Acute impacted and displaced transcervical fracture of the left femur. Left Elbow XRAY: IMPRESSION: No acute fracture. Left Hand XRAY: IMPRESSION: 1. No acute bony abnormality is identified. 2. Osteopenia and mild arthritic change as above. LEFT KNEE XRAY: IMPRESSION: 1. Trace left knee effusion. 2. No fractures. 07/28 s/p Left Uncemented Bipolar Hemiarthroplasty(Left) - Luiz Key MD 07/29 stable overall Hg 14 --> 10.6 monitor Lovenox for DVT prophylaxis PT /OT in progress Vit D deficiency Vit D 27 will replace with 50k weekly x 4 weeks, then repeat Vit D (3) COVID: Plan: History COVID-19 Symptoms cough, diarrhea 07/07/2021. Positive COVID-19 test on 07/08/2021. Received monoclonal antibodies on 07/10/2021 Not currently symptomatic. CXR: no acute findings +COVID-19 vaccination Does not require isolation since greater than 10 days since symptom onset per infection control nurse (4) SVT (supraventricular tachycardia): Plan: S/P Ablation Monitor on tele (5) HTN (hypertension): Plan: Continue losartan Hold HCTZ (6) Dyslipidemia: Plan: Continue rosuvastatin (7) Anxiety: Plan: Hold xanax as needed if able while on pain medication (8) History of gastric bypass: Plan: H/O GERD No current medications DVT Prophylaxis - Lovenox Full Code as per discussion with pt Follows with Dr Zaragoza for routine care plan of care discussed with patient in detail and at length all questions answered she is understanding, agreeable, comfortable with the plan of care Admission and Anticipated Discharge Date Admission Date: July 28, 2021 Subjective ff up for left femoral fracture, s/p surgery , etc seen resting in bed, comfortable states left hip is sore- "not too bad" able to participate with PT today no chest pain, dyspnea, palpitations, dizziness no cough, fever/chills no abdominal pain, nausea/vomiting no other symptoms Review of Systems Review of Systems: all noted and negative except for above Physical Exam Physical Exam: General- oriented x 3, not in distress, speaks in sentences with no effort or accessory muscle use Eyes- anicteric Neck- no JVD Lungs- clear breath sounds bilaterally, no rales/wheezes Heart- normal rate, regular rhythm; no murmurs Abdomen- normal bowel sounds, nondistended, soft, nontender Extremities- no pretibial edema, no calf tenderness left hip: dressing in place, no bleeding/discharge; minimal edema of the left thigh Neuro- alert, oriented x 3; no gross focal neurologic deficits Skin- warm & dry Results & Data Results & [facility] ([facility]) Vital Signs (Past 12 Hours) Vital Signs Temp Pulse Pulse Resp BP Pulse Ox 07/29/21 15:27 37.5 C 95 H 20 120/73 93 07/29/21 11:36 37.5 C 92 H 18 117/70 95 07/29/21 07:48 37.0 C 88 20 110/68 92 07/29/21 06:12 88 07/29/21 06:00 37.1 C 83 16 111/65 96 all noted and reviewed including below (1) Fall Encounter type: initial encounter Qualified Code(s): W19.XXXA - Unspecified fall, initial encounter
[2021-07-29] MEDS: traMADol HCL 50 MG TABLET PO PRN (23:39)
[2021-07-30] MEDS: traMADol HCL 50 MG TABLET PO PRN (04:57)
[2021-07-30] MEDS: LOSARTAN POTASSIUM 50 MG TAB PO SCH (08:52)
[2021-07-30] MEDS: ROSUVASTATIN CALCIUM 20 MG TAB PO SCH (08:52)
[2021-07-30] MEDS: ENOXAPARIN INJ 40 MG/0.4 ML SYR SQ SCH (08:53)
[2021-07-30 08:55] LABS: Basophils # (auto) 0.02 K/uL (0-0.2); Basophils % (auto) 0.2 %; Eosinophils # (auto) 0.01 K/uL (0-0.5); Eosinophils % (auto) 0.1 %; Hematocrit (blood only) 32.2 % (37-47); Hemoglobin 10.5 g/dL (12.0-16.0); Immature Granulocytes # (auto) 0.02 K/uL (0.00-0.02); Immature Granulocytes % (auto) 0.2 %; Lymphocytes # (auto) 0.96 K/uL (1.2-3.4); Lymphocytes % (auto) 9.4 %; Mean Corpuscular Hemoglobin 28.8 pg (25-34); Mean Corpuscular Hgb Conc 32.6 g/dL (32-36); Mean Corpuscular Volume 88.2 fL (80-100); Mean Platelet Volume 10.1 fL (7.4-10.4); Monocytes # (auto) 0.94 K/uL (0.11-0.59); Monocytes % (auto) 9.2 %; Neutrophils # (auto) 8.26 K/uL (1.4-6.5); Neutrophils % (auto) 80.9 %; Platelet Count 243 K/uL (130-400); RDW Coefficient of Variation 13.4 % (11.5-14.5); RDW Standard Deviation 43.6 fL (36.4-46.3); Red Blood Count 3.65 M/uL (4.2-5.4); White Blood Count 10.21 K/uL (4.8-10.8)
[2021-07-30 09:31] LABS: BUN Creatinine Ratio 9.1 (10-20); Calcium 8.3 mg/dl (8.5-10.1); Creatinine Clr Calc Pharmacy 112.8 ml/min; Est GFR (African American) 113.4 ml/min; Est GFR (Non-African American) 97.8 ml/min; Potassium 3.4 mmol/L (3.5-5.1)
--- NOTE | 2021-07-30 10:47 | Hospitalist Progress Note ---
Date of Service July 30, 2021 Assessment & Plan (1) Fall: (2) Closed left hip fracture: Plan: Patient is 66 y/o F with PMH HTN, dyslipidemia, GERD, gastric bypass surgery, anxiety, paroxysmal SVT s/p ablation, left breast CA s/p mastectomy presented to ER with complaint of slip and fall and left hip pain and was found to have an acute impacted and displaced transcervical fracture of the left femur. Hip/pelvis XR with acute impacted and displaced transcervical fracture of the left femur No fracture identified on L elbow XR, L hand XR, L knee XR Underwent Left Uncemented Bipolar Hemiarthroplasty by Dr. Key on 07/28 Stable overall. Hgb 10.5 (10.6 yesterday) Lovenox for DVT ppx x 2 weeks per ortho (3) Vitamin D deficiency: Plan: Vit D 27 Replace with 50k weekly x 4 weeks, then repeat Vit D (4) COVID: Plan: History COVID-19 Symptoms cough, diarrhea 07/07/2021. Positive COVID-19 test on 07/08/2021. Received monoclonal antibodies on 07/10/2021 Not currently symptomatic. CXR: no acute findings +COVID-19 vaccination Does not require isolation since greater than 10 days since symptom onset per infection control nurse (5) SVT (supraventricular tachycardia): Plan: S/P Ablation Monitor on tele (6) HTN (hypertension): Plan: Continue losartan Hold HCTZ (7) Dyslipidemia: Plan: Continue rosuvastatin (8) Anxiety: Plan: Hold xanax as needed if able while on pain medication (9) History of gastric bypass: Plan: H/O GERD No current medications DVT Prophylaxis - Lovenox Full Code as per discussion with pt Follows with Dr Zaragoza for routine care plan of care discussed with patient in detail and at length all questions answered she is understanding, agreeable, comfortable with the plan of care Patient seen in collaboration with Dr. Santillan. Please see addendum. Admission and Anticipated Discharge Date Admission Date: July 28, 2021 Subjective Patient seen and examined in 259-1. Feeling well today. Participating with therapy without issue. Surgical site discomfort with ambulation, made better with tramadol. Denies fever, chills, lightheadedness, headache, chest pain, shortness of breath, nausea, vomiting, abdominal pain, dysuria, diarrhea constipation. Planned discharge home with home health later this afternoon. Review of Systems Review of Systems: At least ten systems reviewed and negative except as noted in the HPI. Physical Exam Physical Exam: General Appearance: WD/WN, vitals as above, NAD, sitting up in bed, pleasant, conversing easily Head: normocephalic, atraumatic Eyes: normal inspection, PERRL, conjunctivae normal, anicteric sclerae ENT: external ear and nose normal, oropharynx normal Neck: normal visual inspection, trachea midline, no thyromegaly Respiratory: normal respiratory effort, lungs clear to auscultation, no wheeze, rales, rhonchi. No accessory muscle use Cardiovascular: regular rate, rhythm, no murmur, normal peripheral pulses, no BLE edema. Vessels: no JVD Chest: normal inspection of chest Abdomen/GI: normal bowel sounds, soft, nontender, no hepatosplenomegaly Extremities/Musculoskeletal: +L surgical dressing in place. No cyanosis or clubbing, extremities motor strength 5/5 Neurologic: PERRL, EOMI, accommodation nl, no face palsy, no dysarthria, CN's II-XI intact bilaterally and moves all extremities Psychiatric: A+Ox3, euthymic affect Skin: no rashes, normal color, warm/dry Results & Data Results & Data ([facility]) Vital Signs (Past 12 Hours) Vital Signs Temp Pulse Pulse Resp BP Pulse Ox 07/30/21 08:10 88 07/30/21 06:50 37.5 C 90 20 112/69 97 07/30/21 03:50 37.2 C 102 H 20 112/70 92 07/30/21 00:45 37.5 C 07/29/21 23:44 38.0 C H 106 H 20 113/70 93 07/29/21 23:00 103 H Laboratory Results Short CBC 07/30/21 Range/Units 08:21 WBC 10.21 (4.8-10.8) K/uL Hgb 10.5 L (12.0-16.0) g/dL Hct 32.2 L (37-47) % Plt Count 243 (130-400) K/uL BMP 07/30/21 08:21 Sodium 135 L Potassium 3.4 L Chloride 101 Carbon Dioxide 27 BUN 5 L Creatinine 0.56 L Glucose 168 H Calcium 8.3 L Diagnostic Findings Chest X-Ray 07/28/21 10:57 XR chest 1V not portable INDICATION: MN ^fall . TECHNIQUE: Single frontal radiograph of the chest was obtained. Comparison: None available at the time of this dictation. FINDINGS: No lines and tubes are seen. The cardiomediastinal silhouette is normal. Lungs are underinflated but clear. No evidence of pleural effusion or pneumothorax. IMPRESSION: No acute chest disease. ACT 112: Negative or not required by law. Electronically signed by: Femi Pang M.D. 07/28/2021 12:48 PM Elbow X-Ray 07/28/21 10:57 XR elbow LT min 3V routine HISTORY: 66 years-old Female fall acute left elbow pain status post fall COMPARISON: None TECHNIQUE: 3 views of the left elbow FINDINGS: Demineralized appearance the bones. Mild osteoarthritis. No acute fracture or dislocation. Mild dorsal soft tissue swelling. No large joint effusion. IMPRESSION: No acute fracture. ACT 112: Negative or not required by law. The above report was generated using voice recognition software. It may contain grammatical, syntax or spelling errors. Electronically signed by: Placido Juarez M.D. 07/28/2021 12:47 PM Hand X-Ray 07/28/21 10:57 LEFT HAND 3 VIEWS CLINICAL HISTORY: Fall with left hand injury. FINDINGS: 3 views of the left hand are obtained. No prior studies are available for comparison at the time of dictation. The skeletal structures are osteopenic. No fracture is identified. There is mild degenerative narrowing at the radiocarpal articulation. Mild osteoarthritic change is noted at the first carpometacarpal and metacarpophalangeal joints. Mild osteoarthritic change is also seen involving the interphalangeal joints, greatest in the third finger. No erosive disease is identified. The overlying soft tissues are within normal limits. IMPRESSION: 1. No acute bony abnormality is identified. 2. Osteopenia and mild arthritic change as above. Electronically signed by: Neeraj Vinson M.D. 07/28/2021 1:15 PM Hip/Pelvis X-Ray 07/28/21 10:57 XR hip LT 2V w pelvis HISTORY: 66 years-old Female fall acute pelvic pain status post fall COMPARISON: None TECHNIQUE: AP view of the pelvis with crosstable lateral view of the left hip FINDINGS: Mild osteoarthritis of the hips. There is an acute transcervical fracture of the left femoral neck which demonstrates apex cephalad angulation with lateral displacement of 2 cm and impaction of approximately 2 cm. No dislocation. IMPRESSION: Acute impacted and displaced transcervical fracture of the left femur. ACT 112: Negative or not required by law. The above report was generated using voice recognition software. It may contain grammatical, syntax or spelling errors. Electronically signed by: Placido Juarez M.D. 07/28/2021 12:49 PM Knee X-Ray 07/28/21 10:57 LEFT KNEE 2 VIEWS HISTORY: Left knee pain. fall COMPARISON: None. FINDINGS: There is no fracture or dislocation. Trace knee effusion. Mild anterior soft tissue swelling. Mild tricompartmental osteoarthritis. The bones are slightly osteopenic. No radiopaque foreign bodies. IMPRESSION: 1. Trace left knee effusion. 2. No fractures. ACT 112: Negative or not required by law. Electronically signed by: Krzysztof Nguyen M.D. 07/28/2021 12:46 PM Hip/Pelvis X-Ray 07/28/21 21:03 XR hip LT 2V w pelvis INDICATION: MN ^Y ^Post-Operative implant position ^AP shoot through lateral of L hip in ICU-12 TECHNIQUE: 2 views of the left hip and single frontal view of the pelvis were obtained. Comparison: Comparison is made to left hip 3 views 2020 at 0929 hours FINDINGS: Previously noted left femoral neck fracture has been reduced and a total left hip arthroplasty has been performed. The bones are anatomically aligned. Postsurgical changes are seen including subcutaneous emphysema. IMPRESSION: Status post reduction of femoral neck fracture and placement of total left hip arthroplasty with expected postsurgical appearance. ACT 112: Negative or not required by law. Electronically signed by: Femi Pang M.D. 07/28/2021 9:36 PM (1) Fall Encounter type: initial encounter Qualified Code(s): W19.XXXA - Unspecified fall, initial encounter
--- NOTE | 2021-07-30 13:26 | Discharge Summary ---
Date of Service July 30, 2021 Admission HPI Per Admitting Provider Pt is 66 y/o F with PMH HTN, dyslipidemia, GERD, gastric bypass surgery, anxiety, paroxysmal SVT s/p ablation, left breast CA s/p mastectomy presented to ER with complaint of fall and left hip pain. Patient states was getting out of car when she lost her balance and fell on ground on left side. Denies hitting head or LOC. Patient reports left hip pain and unable to move left leg much secondary to pain. Denies paresthesias left lower extremity. Denies history of prior left hip or left extremity injury. Also reports abrasion to left elbow and forearm, but reports able to move LUE. Patient reports cough and diarrhea 07/07/2021 and positive COVID-19 test on 07/08/2021. Received monoclonal antibodies on 07/10/2021 and since patient reports has been symptom-free with no further cough or diarrhea. Patient reports did have 2 doses COVID-19 vaccination. Denies fever/chills, diaphoresis, N/V/D/C, KAY, dizziness, syncope, vision changes, neck pain, CP, SOB, orthopnea, palpitations, cough, sore throat, choking, otalgia, rhinorrhea, abdominal pain, paresthesias, weakness, extremity weakness, extremity edema, rashes, urinary symptoms. Admission Exam Per Admitting Provider General: no distress, overweight Head: normocephalic, atraumatic Eyes: PERRL, EOM's intact, conjunctiva non-injected, anicteric ENT: normal inspection external ears, nose, mucous membranes moist Neck: supple, trachea midline Lungs: clear, no respiratory distress, no wheezing/rhonchi/rales CV: RRR, no murmur, no pretibial edema Abd: normal BS, soft, non-tender Ext: LLE: pt hold left leg in flexion at knee as position of comfort, unable to extend hip or knee left hip secondary to pain, +tenderness to palpation hip, anterior knee, distal pulses palpable, sensation to light touch intact. no cyanosis, no calf tenderness. LUE: +tenderness left elbow, able to fully flex elbow and wrist, distal pulses palpable Neuro: A&O x 3, no focal deficits noted, normal affect Skin: warm, dry, +abrasion left arm Principal Diagnosis Left femur fracture Discharge Exam General Appearance: WD/WN, vitals as above, NAD, sitting up in bed, pleasant, conversing easily Head: normocephalic, atraumatic Eyes: normal inspection, PERRL, conjunctivae normal, anicteric sclerae ENT: external ear and nose normal, oropharynx normal Neck: normal visual inspection, trachea midline, no thyromegaly Respiratory: normal respiratory effort, lungs clear to auscultation, no wheeze, rales, rhonchi. No accessory muscle use Cardiovascular: regular rate, rhythm, no murmur, normal peripheral pulses, no BLE edema. Vessels: no JVD Chest: normal inspection of chest Abdomen/GI: normal bowel sounds, soft, nontender, no hepatosplenomegaly Extremities/Musculoskeletal: +L surgical dressing in place. No cyanosis or clubbing, extremities motor strength 5/5 Neurologic: PERRL, EOMI, accommodation nl, no face palsy, no dysarthria, CN's II-XI intact bilaterally and moves all extremities Psychiatric: A+Ox3, euthymic affect Skin: no rashes, normal color, warm/dry Discharge Data Allergies Allergy/AdvReac Type Severity Reaction Status Date / Time Penicillins Allergy Unknown Rash Verified 07/28/21 13:04 Consultations 07/28/21 12:53 Consult Orthopedic Surgery Stat 07/28/21 13:13 ED Decision to Admit Stat 07/28/21 15:34 Consult Anesthesiology Routine Consult Orthopedic Surgery Routine Procedures Performed Operation Date: 07/28/21 15:45 Actual Procedures p Left Uncemented Bipolar Hemiarthroplasty(Left) - Luiz Key MD Hospital Course (1) Fall: (2) Subcapital fracture of left hip: (3) Vitamin D deficiency: (4) Anxiety: (5) Dyslipidemia: (6) HTN (hypertension): (7) COVID: (8) SVT (supraventricular tachycardia): Patient is 66 y/o F with PMH of HTN, dyslipidemia, GERD, gastric bypass surgery, anxiety, paroxysmal SVT s/p ablation, left breast CA s/p mastectomy presented to ER with complaint of slip and fall and left hip pain and was found to have an acute impacted and displaced transcervical fracture of the left femur. No other fractures were identified from fall on imaging of L elbow XR, L hand XR and L knee XR. Patient underwent left uncemented bipolar hemiarthroplasty by Dr. Key on 07/28 and is doing well postoperatively with stable hemoglobin. Able to participate with therapy and is highly motivated for recovery at home with Home Health. Was found to have vitamin D deficiency during admission and was prescribed supplementation to continue at home. Will be discharged home with SQ Lovenox x 14 days per orthopedic surgery as well as pain medication to take as needed. Of note, patient with recent history of covid-19 at the beginning of the month but not currently symptomatic and no longer requiring isolation. Patient is hemodynamically stable and verbalizes understanding of instructions at time of discharge. Patient also had low vit D level of 27ng/ml. Was discharged on Vit D 50,000U qWk for 3weeks and then PCP can recheck Vit D Total Time Total Time Spent Total Time Spent (In Minutes): 35 Discharge Plan Discharge Items Patient Disposition: Home - Home Health Services Reason For Visit: HIP FX Discharge Diagnosis: Hip fracture Condition on Discharge: Good Activity: Per Instructions section Lifting: Wait until after follow-up appointment Bathing: Keep incision dry Exercise/Sports: Wait until after follow-up appointment Driving/Machine Use: No driving until cleared by Dr. Key Weightbearing: Left weightbearing Weightbearing Comment: with assistance of a walker Non-emergency contact: Primary Care Provider and Surgeon Call non-emergency contact if: you have any medication questions, your pain is not controlled, your temperature is above 101, your wound has increased redness, your wound has increased drainage and your wound pain has increased Follow-up/Referrals: Javier Zaragoza MD [Primary Care Provider] - (Date & Time 08/04/2021 7:00 AM Provider Javier Zaragoza MD Department [facility] ) Luiz Key MD [Surgeon] - 08/11/21 10:00 am Diet: Regular Addtl Attending Provider Instructions: Ines, You were admitted after fall and found to have left hip fracture and underwent surgical repair on 07/28/21. You have been evaluated by PT and OT services who feel you are okay to return home with Home Health services and family support. MEDICATION CHANGES: You will be discharged home today with prescriptions for tylenol and tramadol for pain as needed. You were also prescribed SQ Lovenox shots for 2 weeks as well as Vitamin D to take every for 3 weeks, as described below. RECOMMENDATIONS FOR FOLLOW-UP: Please follow up with primary care doctor, Dr. Zaragoza, on 08/04/21 at 7AM. Please follow up with orthopedic surgeon Dr. Key on 08/11/21 at 10AM. OTHER INSTRUCTIONS: Seek medical attention if you have: * temperature above 101 * chest pain or trouble breathing * abdominal pain, nausea, vomiting * diarrhea, dark stools or bloody stools * any unanswered questions or concerns Call 911 if symptoms are severe. Please take good care of yourself. Call if you have any questions or problems. You can reach a [facility] on duty at [facility] 24 hours a day by calling [phone]. Ewa Kaur PA-C [facility] Hospitalist Addtl Forming Machine Upkeep Mechanic Provider Instructions: Posterior hip precautions left hip at all times. You may weight bear as tolerated left lower extremity Use walker or crutches to assist with ambulation at all times. Ice to left hip as needed for pain/swelling. Elevate left lower extremity as needed for swelling. Keep abduction pillow or standard pillow between knees when in bed or sitting in a chair until your follow up appointments. Vinnie stockings on during the day; off at night Allowed for range of motion of left ankle, left knee as directed by your therapist Lovenox 40mg daily x 2 -4 weeks after surgery Tramadol, Tylenol and oxycodone as prescribed Vitamin D 50,000 IU once weekly on x [address] Follow up with Dr. Key on 08/11/21 at 10:00 a.m. Call with any increased pain, swelling, drainage or concerns with your left hip. You may shower starting on Monday08/01/21. Redress left hip incision after bathing/showering. Keep hip incision covered until your post operative appointment. Pending Studies at Discharge: No Stand-Alone Forms: [facility], Smoking Cessation Medications and DC Order Prescriptions: New tramadol 50 mg Tablet 50 mg PO Q6H PRN (Reason: pain) Qty: 28 RF: 0 enoxaparin 40 mg/0.4 mL Syringe 40 mg subcut Q24H 14 Days Qty: 5.6 RF: 0 ergocalciferol (vitamin D2) 1,250 mcg (50,000 unit) Capsule 50,000 unit PO . Qty: 3 RF: 0 Continued alprazolam 0.5 mg tablet 0.5 mg PO TID PRN (Reason: Anxiety) RF: 0 [place] Oil 1,000 mg Capsule 1 cap PO TID RF: 0 [place] 1 cap PO QAM RF: 0 meloxicam 15 mg tablet 15 mg PO DAILY PRN (Reason: Pain) RF: 0 losartan-hydrochlorothiazide 50-12.5 mg tablet 1 tab PO DAILY RF: 0 rosuvastatin 20 mg tablet 20 mg PO DAILY RF: 0 Changed acetaminophen [Tylenol Extra Strength] 500 mg Tablet 1,000 mg PO Q6H Qty: 30 RF: 0 Discharge Orders: Discharge Order (Routine); Ordered 07/30/21 Ordered By: Ewa Kaur Admission Data Admit Date/Time: 07/28/21 13:43 Attending Provider: Alaina Santillan I. Admit Provider: Cristino Washburn Primary Care Provider: Javier Zaragoza Other Providers: Luiz Key ; Cristino Washburn ; Nilson Jackson ; [facility] ; Ewa Kaur ; [facility],Home Health Other Interventions: Discharge Summary Assessment (RN) Last Done: 07/30/21 13:44 Supervising Physician Co-Signing Physician Notes Agree with findings and plan as detailed by Ewa Mccracken PA-C Spent 35 mins on evaluation, education, discharge counselling and med rec
[2021-07-30] MEDS ORDERED: POTASSIUM CHLORIDE CRTAB 20 MEQ TABCR PO STA (13:34)
--- NOTE | 2021-07-30 15:05 | Orthopedic Progress Note ---
Date of Service July 30, 2021 Assessment & Plan (1) Status post hip hemiarthroplasty: Plan: Patient was seen in her room today. Dressing was changed by me. Her wound looks good. She will need to participate in PT and OT today. Anticipate discharge to home with home health services or transfer to [facility] for rehab services depending on how she does with PT. Maintain total hip precautions. Apply ice frequently to reduce pain and swelling. Follow-up in the office as scheduled for staple removal. Weight-bear as tolerated. Admission and Anticipated Discharge Date Admission Date: July 28, 2021 Subjective Patient is seen in her room this morning. She states she did fairly well overnight. She has minimal pain. She states she did PT yesterday and then became fatigued. She did not participate in OT. She feels better today. No chest pain or shortness of breath. No nausea or vomiting. She did have a dose of morphine last night around 10 PM. She had tramadol this morning around 5 AM. Review of Systems Review of Systems: Unchanged from yesterday. Physical Exam Physical Exam: General: Well-developed, well-nourished, middle-aged female, in no acute distress. Laying in the bed. Alert and oriented. Conversive. Skin: Warm dry with good turgor. No rashes or lesions. She has an intact dressing on her left hip. Upon removal, there is scant dried drainage. There is no active bleeding. Сергей are intact. Wound edges are well approximated. Expected postoperative ecchymosis. No significant edema. Musculoskeletal: Patient has intact motor function to her ankle and knee. Hip abduction pillow is in place. She describes soreness with passive logrolling and hip flexion. Neurologic: Gross sensation is intact across the left leg by soft touch. Peripheral pulses are 2+. Results & Data ([facility]) Vital Signs (Past 12 Hours) Vital Signs Temp Pulse Pulse Resp BP Pulse Ox 07/30/21 08:10 88 07/30/21 06:50 37.5 C 90 20 112/69 97 07/30/21 03:50 37.2 C 102 H 20 112/70 92 07/30/21 00:45 37.5 C 07/29/21 23:44 38.0 C H 106 H 20 113/70 93 07/29/21 23:00 103 H Laboratory Results H&H this morning are 10.5 and 32.2. White count of 10.2. Sodium 135, potassium 3.4. Chloride 101. BUN of 5, creatinine 0.56. Glucose 168. Calcium 8.3.
== END 2021-07-30 16:40 | disposition home health service (06) | DRG 522 ==
LOC: ED 10:49 → 2W 13:43 → SUATTDRO 13:43 → 2W 15:23